=== PATIENT | male | born 1970 | race Hispanic/Latino ===

== ENCOUNTER 2022-04-21 11:53 | Emergency (ER) | payer SELFPAY ==
[~2022-04-21] VITALS: Ht 167.6 cm; Wt 94.0 kg
[~2022-04-21 11:53] MED LIST: FLEXERIL PO; IBUPROFEN600 MG PO
[2022-04-21 12:12] VITALS: BP 182/95
[2022-04-21] MEDS ORDERED: FLEXERIL5 M1 PO ×2 (13:49→14:37)
[2022-04-21] MEDS ORDERED: NAPROXEN500 MG PO ×2 (13:49→14:37)
[2022-04-21] MEDS ORDERED: PREDNISONE10 MG PO (14:37)
== END 2022-04-21 15:02 | disposition home or self-care (01) | DRG 552 ==
LOC: ED 11:53
DX: S33.5XXA Sprain of ligaments of lumbar spine, initial encounter (principal); X50.0XXA Overexertion from strenuous movement or load, initial encounter; X50.3XXA Overexertion from repetitive movements, initial encounter; Y93.H1 Activity, digging, shoveling and raking; Y92.096 Garden or yard of other non-institutional residence as the place of occurrence of the external cause